=== PATIENT | male | born 1995 | race African-American/Black ===

== ENCOUNTER 2019-01-19 08:25 | Emergency (ER) | payer MEDICAID ==
[~2019-01-19] VITALS: Ht 170.2 cm; Wt 103.0 kg
[2019-01-19] MEDS ORDERED: ONDANSETRON HCL 4MG/2ML INJ IV STA (08:55)
[2019-01-19] MEDS ORDERED: SODIUM CHLORIDE 0.9% 1,000 ML IV ONE (08:55)
[2019-01-19 09:18] LABS: CLARITY URINE CLEAR (CLEAR); COLOR URINE YELLOW (YELLOW); KETONES URINE NEGATIVE (NEGATIVE); LEUKOCYTE ESTERASE URINE NEGATIVE (NEGATIVE); NITRITE URINE NEGATIVE (NEGATIVE); OCCULT BLOOD URINE NEGATIVE (NEGATIVE); PROTEIN URINE NEGATIVE (NEGATIVE); SPECIFIC GRAVITY URINE 1.007 (1.005-1.030); UROBILINOGEN URINE 0.2 E.U./dL (0.2-1.0)
[2019-01-19 09:19] LABS: EOSINOPHILS % 9.2 % (0.0-5.0); HEMOGLOBIN. 16.5 g/dL (14.0-18.0); LYMPHOCYTES % 38.4 % (20.0-50.0); MEAN CORPUSCULAR HEMOGLOBIN 28.3 pg (28.0-32.0); MEAN CORPUSCULAR VOLUME 82.4 fL (80.0-94.0); MEAN PLATELET VOLUME 9.9 fl (7.4-10.4); MONOCYTES % 7.5 % (2.0-8.0); NEUTROPHILS % 42.9 % (40.0-76.0); PLATELET 141 x1000/uL (130-400); RED BLOOD CELL COUNT 5.83 mill/uL (4.7-6.1); RED CELL DISTRIBUTION WIDTH 14.2 % (11.6-14.6)
[2019-01-19 09:23] LABS: CHLORIDE 108 mEq/L (98-107)
[2019-01-19 10:00] LABS: *AMPHETAMINES SCREEN URINE NEGATIVE (NEGATIVE); *BARBITURATES SCREEN URINE NEGATIVE (NEGATIVE); *BENZODIAZEPINES SCREEN URINE NEGATIVE (NEGATIVE); *COCAINE SCREEN URINE NEGATIVE (NEGATIVE); METHADONE URINE SCREEN NEGATIVE (NEGATIVE); OPIATES URINE SCREEN NEGATIVE (NEGATIVE)
[2019-01-19 10:01] LABS: CANNABINOID URINE SCREEN NEGATIVE (NEGATIVE); PHENCYCLIDINE URINE SCREEN NEGATIVE (NEGATIVE)
[2019-01-19 11:00] VITALS: BP 107/71
== END 2019-01-19 11:00 | disposition home or self-care (01) ==
LOC: ER 08:27
DX: R19.7 Diarrhea, unspecified (principal); R53.83 Other fatigue; R11.2 Nausea with vomiting, unspecified; R53.1 Weakness; J45.909 Unspecified asthma, uncomplicated
CPT/HCPCS: 36415; 80053; 80305; 81003; 83690; 84443; 85025; 96361; 96374; 99283; J2405; J7030; Z7610

== ENCOUNTER 2019-11-22 23:15 | Emergency (ER) | payer MEDICAID ==
[~2019-11-22] VITALS: Ht 188 cm; Wt 104.0 kg
[2019-11-23 01:58] VITALS: BP 133/68
== END 2019-11-23 02:30 | disposition home or self-care (01) ==
LOC: ER 23:15
DX: F12.10 Cannabis abuse, uncomplicated (principal); F10.129 Alcohol abuse with intoxication, unspecified; R11.2 Nausea with vomiting, unspecified; J45.909 Unspecified asthma, uncomplicated; I49.9 Cardiac arrhythmia, unspecified; Y90.9 Presence of alcohol in blood, level not specified
CPT/HCPCS: 93005; 99283

== ENCOUNTER 2021-11-19 05:42 | Emergency (ER) | payer MEDICAID ==
[~2021-11-19] VITALS: Ht 185.4 cm; Wt 109.0 kg
[2021-11-19] MEDS ORDERED: IBUPROFEN 600MG TABLET PO STA (06:11)
[2021-11-19 07:08] LABS: BASOPHILS % 1.3 % (0.0-2.0); EOSINOPHILS % 4.1 % (0.0-5.0); HEMATOCRIT. 45.6 % (42.0-52.0); HEMOGLOBIN. 15.2 g/dL (14.0-18.0); LYMPHOCYTES % 23.7 % (20.0-50.0); MEAN CORPUSCULAR HEMOGLOBIN 28.1 pg (28.0-32.0); MEAN CORPUSCULAR VOLUME 84.4 fL (80.0-94.0); MEAN PLATELET VOLUME 9.6 fl (7.4-10.4); MONOCYTES % 9.1 % (2.0-8.0); NEUTROPHILS % 61.8 % (40.0-76.0); PLATELET 182 x1000/uL (130-400); RED CELL DISTRIBUTION WIDTH 14.5 % (11.6-14.6)
[2021-11-19 07:17] LABS: CHLORIDE 107 mEq/L (98-107)
[2021-11-19 07:24] LABS: *AMPHETAMINES SCREEN URINE NEGATIVE (NEGATIVE); *BARBITURATES SCREEN URINE NEGATIVE (NEGATIVE); *BENZODIAZEPINES SCREEN URINE NEGATIVE (NEGATIVE); *COCAINE SCREEN URINE NEGATIVE (NEGATIVE); CANNABINOID URINE SCREEN NEGATIVE (NEGATIVE); METHADONE URINE SCREEN NEGATIVE (NEGATIVE); OPIATES URINE SCREEN NEGATIVE (NEGATIVE); PHENCYCLIDINE URINE SCREEN NEGATIVE (NEGATIVE)
[2021-11-19 07:27] LABS: ETHANOL BLOOD < 10 mg/dL
[2021-11-19] MEDS ORDERED: IBUP-2029 MT (07:46)
[2021-11-19 09:07] VITALS: BP 105/59
== END 2021-11-19 09:10 | disposition home or self-care (01) ==
LOC: ER 05:42
DX: R07.9 Chest pain, unspecified (principal); J45.909 Unspecified asthma, uncomplicated; R94.31 Abnormal electrocardiogram [ECG] [EKG]
CPT/HCPCS: 36415; 71045; 80053; 80305; 80320; 83880; 84484; 85025; 93005; 99285; G0480

== ENCOUNTER 2023-08-29 18:39 | Emergency (ER) | payer MEDICAID ==
[~2023-08-29] VITALS: Ht 188 cm; Wt 109.0 kg
[~2023-08-29 18:39] MED LIST: IBUP-2029 MT
[2023-08-29 18:50] VITALS: O2SAT 100
[2023-08-29] MEDS: SODIUM CHLORIDE 0.9% 1,000 ML IV ONE (20:48)
[2023-08-29 21:06] LABS: BASOPHILS % 1.1 % (0.0-2.0); EOSINOPHILS % 6.1 % (0.0-5.0); HEMATOCRIT. 51.2 % (42.0-52.0); HEMOGLOBIN. 16.7 g/dL (14.0-18.0); LYMPHOCYTES % 33.6 % (20.0-50.0); MEAN CORPUSCULAR HEMOGLOBIN 28.3 pg (28.0-32.0); MEAN CORPUSCULAR HGB CONC 32.5 g/dL (31.0-37.0); MEAN PLATELET VOLUME 9.2 fl (7.4-10.4); MONOCYTES % 7.5 % (2.0-8.0); NEUTROPHILS % 51.7 % (40.0-76.0); PLATELET 149 x1000/uL (130-400); RED BLOOD CELL COUNT 5.89 mill/uL (4.7-6.1); RED CELL DISTRIBUTION WIDTH 14.9 % (11.6-14.6); WHITE BLOOD COUNT 6.3 x1000/uL (4.5-11.0)
[2023-08-29 21:23] LABS: CHLORIDE 106 mEq/L (98-107); SODIUM 136 mEq/L (136-145)
[2023-08-29 21:24] LABS: CARBON DIOXIDE 23 mEq/L (21-32)
[2023-08-29 21:25] LABS: CALCIUM 8.8 mg/dL (8.7-10.4)
[2023-08-29 21:29] LABS: GLUCOSE 65 mg/dL (70-105); TROPONIN I HIGH SENSITIVITY < 4 ng/L (3.0-53)
[2023-08-29 21:30] LABS: UREA NITROGEN BLOOD 6 mg/dL (9-23)
[2023-08-29 21:34] LABS: THYROID STIMULATING HORMONE 4.27 uIU/mL (0.55-4.78)
[2023-08-30 00:30] VITALS: TEMP 98.2
[2023-08-30 01:10] LABS: CHLORIDE 107 mEq/L (98-107); POTASSIUM 3.7 mEq/L (3.5-5.1); SODIUM 139 mEq/L (136-145)
[2023-08-30 01:11] LABS: CALCIUM 8.5 mg/dL (8.7-10.4); CARBON DIOXIDE 25 mEq/L (21-32)
[2023-08-30 01:16] LABS: CREATININE 0.9 mg/dL (0.6-1.3); GLUCOSE 81 mg/dL (70-105); UREA NITROGEN BLOOD 6 mg/dL (9-23)
[2023-08-30 01:31] LABS: TROPONIN I HIGH SENSITIVITY < 4 ng/L (3.0-53)
[2023-08-30 02:14] VITALS: BP 119/70; PULSE 96; RESP 19
== END 2023-08-30 02:20 | disposition home or self-care (01) ==
LOC: ER 18:39
DX: R00.2 Palpitations (principal); J45.909 Unspecified asthma, uncomplicated
CPT/HCPCS: 80048 ×2; 82962; 83735; 84443; 85025; 84484 ×2; 36415; 71045; 93005; 96360; 99285; J7030; Z7610 ×3